=== PATIENT | female | born 1965 | race African-American/Black ===

== ENCOUNTER 2017-11-10 08:12 | Emergency (ER) | payer OTHER ==
[2017-11-10 08:17] VITALS: BP 143/88
--- NOTE | 2017-11-10 08:29 | ER Document Report ---
ED General - General Chief Complaint: Mouth Problem Stated Complaint: MOUTH PAIN Time Seen by Provider: 11/10/17 08:29 TRAVEL OUTSIDE OF THE [place] IN LAST 30 DAYS: No - HPI Notes: 52-year-old female presents today with complaints of right lower common dental pain after she had a tooth extracted 3 days ago by her dentist. Reports pain is 10 out of 10, sharp, throbbing and aching. States she was not given any medications when she was discharged from the dentist. Denies any drooling, trismus or difficulty swallowing/breathing. Has been taking ibuprofen without relief. Has not been trying any warm packs or ice packs to mouth. Patient does smoke. Worse with time, nothing makes better. Is eating a soft diet. Is currently not on any antibiotics. Denies fevers, chills, chest pain, palpitations, shortness of breath, dyspnea, nausea, vomiting, diarrhea, abdominal pain, hematuria,blurred vision, double vision, loss of vision, speech changes, LH, dizziness, syncope, headaches, wheezing, ST, URI, neck pain, weakness, bowel or bladder dysfunction, saddle anesthesia, numbness or tingling in bilateral upper or lower extremities equally, muscle paralysis, weakness in bilateral upper or lower extremities equally or rash. Denies IV drug use. - Related Data Allergies/Adverse Reactions: No Known Allergies Allergy (Unverified 07/22/15 16:27) Past Medical History - General Information source: Patient - Social History Smoking Status: Current Every Day Smoker Family History: Reviewed & Not Pertinent - Past Medical History Cardiac Medical History: Reports: Hx Hypertension Past Surgical History: Reports: Hx Section - Immunizations Hx Diphtheria, Pertussis, Tetanus Vaccination: Yes Review of Systems - Review of Systems Constitutional: No symptoms reported EENT: See HPI Cardiovascular: No symptoms reported Respiratory: No symptoms reported Gastrointestinal: No symptoms reported Genitourinary: No symptoms reported Female Genitourinary: No symptoms reported Musculoskeletal: No symptoms reported Skin: No symptoms reported Hematologic/Lymphatic: No symptoms reported Neurological/Psychological: No symptoms reported Physical Exam - Vital signs Vitals: Temp Pulse Resp BP Pulse Ox 98.7 F 93 16 143/88 H 97 11/10/17 08:16 11/10/17 08:16 11/10/17 08:16 11/10/17 08:16 11/10/17 08:16 - Notes Notes: PHYSICAL EXAMINATION: GENERAL: Well-appearing, well-nourished and in no acute distress. HEAD: Atraumatic, normocephalic. EYES: Pupils equal round and reactive to light, extraocular movements intact, conjunctiva are normal. ENT: Nares patent, oropharynx clear without exudates. Moist mucous membranes. #20 tooth extracted, gingiva with swelling, erythema and induration. No drainage or open wounds. No fluctuance. No facial swelling. no definite swelling or effusion. NECK: Normal range of motion, supple without lymphadenopathy LUNGS: Breath sounds clear to auscultation bilaterally and equal. No wheezes rales or rhonchi. HEART: Regular rate and rhythm without murmurs ABDOMEN: Soft, nontender, nondistended abdomen. No guarding, no rebound. No masses appreciated. Female : deferred Musculoskeletal: Normal range of motion, no pitting or edema. No cyanosis. NEUROLOGICAL: Cranial nerves grossly intact. Normal speech, normal gait. Normal sensory, motor exams PSYCH: Normal mood, normal affect. SKIN: Warm, Dry, normal turgor, no rashes or lesions noted. Course - Re-evaluation Re-evalutation: 11/10/17 10:14 52-year-old female is afebrile, vitals stable, states this was extracted 3 days ago, was told to take ibuprofen only. Patient is not on any antibiotics. Patient does smoke cigarettes. Given 60 mg IM prior to leaving. With 6 medical pack to go for her pain, did instruct the patient she should not drive, drink or operate heavy machinery while taking medication. Advised to make a follow-up appointment with her dentist within 1-[address] her on clindamycin for dental caries surrounding area of extraction Advise to do saltwater gargles. At this time will discharge with return precautions and follow-up recommendations. Verbal discharge instructions given a the bedside and opportunity for questions given. Medication warnings reviewed. Patient is in agreement with this plan and has verbalized understanding of return precautions and the need for primary care follow-up in the next 24-72 hours. After performing a Medical Screening Examination, I estimate there is LOW risk for a DEEP SPACE INFECTION (e.g., MIGUE'S ANGINA OR RETROPHARYNGEAL ABSCESS), MENINGITIS, INTRACRANIAL HEMORRHAGE, or AIRWAY COMPROMISE, thus I consider the discharge disposition reasonable. Also, there is no evidence or peritonitis, sepsis, or toxicity. I have reevaluated this patient multiple times and no significant life threatening changes are noted. The patient and I have discussed the diagnosis and risks, and we agree with discharging home with close follow-up with the understanding that symptoms and presentations can change. We also discussed returning to the Emergency Department immediately if new or worsening symptoms occur. We have discussed the symptoms which are most concerning (e.g., changing or worsening pain, trouble swallowing or breathing, neck stiffness or fever) that necessitate immediate return. - Vital Signs Vital signs: Temp Pulse Resp BP Pulse Ox 98.7 F 93 16 143/88 H 97 11/10/17 08:16 11/10/17 08:16 11/10/17 08:16 11/10/17 08:16 11/10/17 08:16 Discharge - Discharge Clinical Impression: Pain, dental Hx of tooth extraction Qualifiers: Tooth loss class: unspecified tooth loss Qualified Code(s): K08.409 - Partial loss of teeth, unspecified cause, unspecified class Condition: Good Disposition: HOME, SELF-CARE Instructions: Toothache ([facility]), Clindamycin ([facility]), [facility], Oral Narcotic Medication ([facility]), Dentist Prescriptions: Clindamycin HCl 300 mg PO Q6H #28 capsule Referrals: ANTHONY LOPEZ MD [ACTIVE STAFF] - Follow up as needed
[2017-11-10] MEDS ORDERED: HYDROCODONE/ACETAMINOPHEN 5-325 MG (6 TAB/ER DISP) PO PRN (08:51)
[2017-11-10] MEDS ORDERED: KETOROLAC TROMETHAMINE 60 MG/2 ML SDV IM ONE (08:51)
== END 2017-11-10 09:33 | disposition home or self-care (01) ==
LOC: ER 08:12
DX: K08.9 Disorder of teeth and supporting structures, unspecified (principal); K08.409 Partial loss of teeth, unspecified cause, unspecified class; F17.200 Nicotine dependence, unspecified, uncomplicated
CPT/HCPCS: 99282; 96372; J1885